=== PATIENT | female | born 1960 | race Caucasian/White ===

== ENCOUNTER → 2016-12-11 | Day surgery (SDC) | payer OTHER ==
[~2016-12-11] MED LIST: ALAVERT10 M3 PO; ALEVE220 M1 PO; ZYRTEC10 M2 PO
--- NOTE | ~2016-12-11 | OR ---
Unit #: [id number] #: [id number] Patient: EVELYN MOHR [id number] [address] [place], [place] [address] [id number] MR#: [id number] NAME: EVELYN MOHR ROOM: Date of Procedure: 12/11/2016 Admission Date: 12/11/2016 Surgeon: Sarbjit Louis Jr., M.D. : 1960 Attending Physician: Sarbjit Louis Jr., M.D. Referring Physician: Sarbjit Louis Jr., M.D. Primary Care Physician: Sonu Smith M.D. OPERATIVE REPORT INDICATIONS FOR PROCEDURE The patient is a 56-year-old white female, who presents desiring screening colonoscopy. Her last colonoscopy was over 10 years ago and apparently was not remarkable. She has had no change in bowel habits and no rectal bleeding. PREOPERATIVE DIAGNOSIS Desired screening colonoscopy, rule out pathology. POSTOPERATIVE DIAGNOSIS Diverticulosis of the left colon and one small polyp of the transverse colon in the mid transverse, which was 1 mm in diameter or so. ANESTHESIA MAC anesthesia. PROCEDURES PERFORMED Flexible colonoscopy to the distal ileum with biopsy of a small polyp in the transverse colon. DESCRIPTION OF PROCEDURE The patient was positioned in Sauer position with left side down. After being given MAC anesthesia, digital rectal examination was performed, which revealed no palpable mass or tenderness. No blood or stool in the rectal ampulla. The Olympus colonoscope was advanced through the anal canal up the rectum and retroflexed down to the area of the anorectal region. There was no evidence of any fissures. No significant internal hemorrhoids. The scope was then straightened and advanced up in the rectosigmoid, in the sigmoid and descending colon areas, around the splenic flexure and the transverse colon, around hepatic flexure and ascending colon, down in the area of the cecum. The light from the tip of the scope could be seen transilluminating through right lower quadrant abdominal wall area. The scope was then advanced up the distal ileum approximately 10 to 12 inches. There was no evidence of any inflammatory bowel disease or ileitis. The scope was then slowly removed. In the mid transverse colon, there was a small 1 mm or so polyp, which was biopsied and removed with one bite with the cold biopsy forceps without bleeding. There were multiple diverticula in the left colon without evidence of diverticulitis, but no evidence of any other abnormalities. No tumors, cancer, or AVMs. No evidence of any colitis or acute diverticulitis. The caliber of the colon appeared normal throughout. The scope was removed. The patient tolerated the procedure well and discharged in satisfactory Unit #: [id number] #: [id number] Patient: ONUR,EVELYN L condition. Dictated by... Sarbjit Louis Jr., M.D. JMB/rachel TD: 12/11/2016 23:08 JOB #: [id number] OPERATIVE REPORT Page 1 of 1 X Sarbjit Louis MD X PROCEDURE OPERATIVE NOTE
== END | disposition home or self-care (01) ==
LOC: COPS 10:38
PROVIDERS: Surgery
PROC: 0DBL8ZX Excision of Transverse Colon, Via Natural or Artificial Opening Endoscopic, Diagnostic (ICD-10-PCS; principal; 2016-12-11 12:30)
DX: Z12.11 Encounter for screening for malignant neoplasm of colon (principal); Z80.0 Family history of malignant neoplasm of digestive organs; D12.3 Benign neoplasm of transverse colon; K57.30 Diverticulosis of large intestine without perforation or abscess without bleeding; M19.90 Unspecified osteoarthritis, unspecified site; M79.673 Pain in unspecified foot; M25.579 Pain in unspecified ankle and joints of unspecified foot; M25.569 Pain in unspecified knee; M50.30 Other cervical disc degeneration, unspecified cervical region; Z79.1 Long term (current) use of non-steroidal anti-inflammatories (NSAID); Z88.1 Allergy status to other antibiotic agents
CPT/HCPCS: 88305; J2250